=== PATIENT | male | born 1995 | race African-American/Black ===

== ENCOUNTER 2021-07-17 21:19 | Emergency (ER) | payer SELFPAY ==
[~2021-07-17] VITALS: Ht 182.9 cm; Wt 79.5 kg
[2021-07-17 22:03] VITALS: BP 138/62
== END 2021-07-18 02:17 | disposition left against medical advice (07) ==
LOC: EMS 21:41
DX: M54.5 Low back pain (principal); Z53.21 Procedure and treatment not carried out due to patient leaving prior to being seen by health care provider